=== PATIENT | female | born 1985 | race Caucasian/White ===

== ENCOUNTER 2017-08-16 21:39 | Emergency (ER) | payer OTHER ==
[~2017-08-16] VITALS: Ht 154.9 cm; Wt 73.5 kg
[2017-08-16] MEDS ORDERED: IBUP200C8 PO (22:06)
[2017-08-16] MEDS ORDERED: ONDANSETRON ODT 4 MG ONE ×2 (22:20→22:30)
[2017-08-16] MEDS ORDERED: ONDANSETRON ODT 8 MG PO ONE (22:30)
[2017-08-16 22:55] VITALS: BP 109/69
== END 2017-08-16 22:57 | disposition home or self-care (01) ==
LOC: ED 22:45
DX: R19.7 Diarrhea, unspecified (principal); R11.2 Nausea with vomiting, unspecified; R10.84 Generalized abdominal pain
CPT/HCPCS: 99283; Q0162

== ENCOUNTER 2020-10-18 18:41 | Inpatient (IN) | payer OTHER ==
[~2020-10-18] VITALS: Ht 154.9 cm; Wt 80.5 kg
[~2020-10-18 18:41] MED LIST: CEFAZOLIN 1,000 MG ONE; DEXAMETHASONE 4 MG/ML, 1ML ONE; GLYCOPYRROLATE 0.2MG/1ML, 5ML ONE; IBUP200C8 PO; NEOSTIGMINE 1 MG/ML, 10ML ONE; ONDANSETRON 2MG/ML, 2ML ONE; PROPOFOL 10 MG/ML, 20ML ONE; ROCURONIUM 10 MG/ML,10ML ONE; SUCCINYLCHOLINE 20 MG/ML, 10ML ONE
[2020-10-18] MEDS ORDERED: SODIUM CHLORIDE FLUSH 10ML SYR IVF ONE (20:00)
[2020-10-18 20:15] LABS: BASOPHILS % (AUTO) 1 % (0-1); EOSINOPHILS % (AUTO) 1 % (1-7); LYMPHOCYTES % (AUTO) 22 % (22-44); MEAN PLATELET VOLUME 7.4 fL (7.4-10.4); MONOCYTES % (AUTO) 5 % (2-9); NEUTROPHILS % (AUTO) 71 % (42-75); PLATELET COUNT 343 x10^3/uL (130-400); RED BLOOD COUNT 4.89 x10^6/uL (3.82-5.3); RED CELL DISTRIBUTION WIDTH 13.3 % (9.6-15.2)
[2020-10-18 20:22] LABS: ALANINE AMINOTRANSFERASE 44 U/L (12-78); ALBUMIN 3.8 g/dL (3.4-5.0); ANION GAP 2 mmol/L (5-15); CALCIUM 9.6 mg/dL (8.5-10.1); CHLORIDE 110 mmol/L (98-107); CREATININE 0.79 mg/dL (0.55-1.02)
[2020-10-18 20:24] LABS: MD NO
[2020-10-18 20:27] LABS: ALKALINE PHOSPHATASE 67 U/L (45-117); BILIRUBIN,TOTAL 0.3 mg/dL (0.2-1.0); TOTAL PROTEIN 8.3 g/dL (6.4-8.2)
[2020-10-18] MEDS ORDERED: ONDANSETRON 2MG/ML, 2ML ONE ×2 (21:19→22:10)
[2020-10-18] MEDS ORDERED: MORPHINE SULFATE 4 MG/ML, 1ML ONE (21:19)
[2020-10-18] MEDS ORDERED: SODIUM CHLORIDE 0.9%, 500ML IVBOLUS ONE (22:00)
[2020-10-18] MEDS ORDERED: ONDANSETRON 2MG/ML, 2ML IVPush ONE ×2 (22:00→23:00)
[2020-10-18] MEDS ORDERED: MORPHINE SULFATE 4 MG/ML, 1ML IVPush ONE (22:00)
[2020-10-18] MEDS ORDERED: HYDROmorphone 1 MG/ML, 1ML INJ ONE (22:10)
[2020-10-18] MEDS ORDERED: LACTATED RINGERS 1,000 ML IV SCH (23:00)
[2020-10-18] MEDS ORDERED: HYDROmorphone 1 MG/ML, 1ML INJ IVPush ONE (23:00)
--- NOTE | 2020-10-18 23:14 | NUR ---
pt ambulated to restroom with , bolus completed. pt states pain is much better. no other needs at this time.
--- NOTE | 2020-10-18 23:16 | NUR ---
hospitalist saw pt, orderes placed. pt had some water and juice at 2245, ok per erp. pt npo at midnight.
[2020-10-18] MEDS: D5%-0.9% NACL 1,000 ML IV SCH (23:29)
[2020-10-18] MEDS ORDERED: ONDANSETRON ODT 4 MG PO PRN (23:30)
[2020-10-18] MEDS ORDERED: hydrALAzine 20 MG/ML, 1ML IVPush PRN (23:30)
[2020-10-18] MEDS ORDERED: ACETAMINOPHEN 325 MG TABLET PO PRN (23:30)
[2020-10-18] MEDS ORDERED: OXYcodone IR 5MG TABLET PO PRN (23:30)
[2020-10-18] MEDS ORDERED: PROMETHAZINE 25 MG/ML, 1ML IM PRN (23:30)
[2020-10-18] MEDS ORDERED: morphine SULFATE 10 MG/ML, 1ML IVPush PRN (23:30)
[2020-10-18] MEDS ORDERED: ONDANSETRON 2MG/ML, 2ML IVPush PRN (23:30)
[2020-10-18] MEDS ORDERED: DOCUSATE 100 MG CAPSULE PO PRN (23:30)
--- NOTE | 2020-10-18 23:35 | NUR ---
pt understanding of npo status after midnight, fluids started per hospitalist order. hospital bed ordered from [facility].
--- NOTE | 2020-10-18 23:51 | NUR ---
pt placed on hospital bed, no other needs at this time
--- NOTE | 2020-10-19 01:12 | NUR ---
pt given litzy medina per request, no other needs at this time
[2020-10-19] MEDS ORDERED: PROMETHAZINE 25 MG/ML, 1ML ONE (03:49)
--- NOTE | 2020-10-19 04:28 | NUR ---
pt sleeping in bed, respirations even/unlabored. call light within reach
[2020-10-19 05:52] LABS: BASOPHILS % (AUTO) 1 % (0-1); EOSINOPHILS % (AUTO) 1 % (1-7); LYMPHOCYTES % (AUTO) 23 % (22-44); MEAN CORPUSCULAR HEMOGLOBIN 31.1 pg (27.0-34.8); MEAN CORPUSCULAR HGB CONC 34.3 g/dL (32.4-35.8); MEAN PLATELET VOLUME 7.3 fL (7.4-10.4); MONOCYTES % (AUTO) 7 % (2-9); NEUTROPHILS % (AUTO) 69 % (42-75); PLATELET COUNT 312 x10^3/uL (130-400); RED BLOOD COUNT 4.23 x10^6/uL (3.82-5.3); RED CELL DISTRIBUTION WIDTH 13.3 % (9.6-15.2)
[2020-10-19 05:54] LABS: MD NO
[2020-10-19 05:59] LABS: ALBUMIN 3.2 g/dL (3.4-5.0); ANION GAP 3 mmol/L (5-15); CALCIUM 8.6 mg/dL (8.5-10.1); CHLORIDE 109 mmol/L (98-107)
[2020-10-19 06:13] LABS: ALANINE AMINOTRANSFERASE 49 U/L (12-78); ALKALINE PHOSPHATASE 60 U/L (45-117); BILIRUBIN,TOTAL 0.5 mg/dL (0.2-1.0); CREATININE 0.72 mg/dL (0.55-1.02); TOTAL PROTEIN 6.6 g/dL (6.4-8.2)
--- NOTE | 2020-10-19 06:42 | NUR ---
REPORT GIVEN TO ELVIN ODONNELL (OR)
--- NOTE | 2020-10-19 06:52 | NUR ---
report given to ephraim null
--- NOTE | 2020-10-19 07:55 | NUR ---
PT RESTING IN BED NAD. PT REPORTS 7/10 PAIN AND A LITTLE NAUSEA PT REFUSING PAIN MEDS OR NASUAE MEDS AT THIS TIME. SURGEON WAS AT BEDSIDE.
[2020-10-19] MEDS ORDERED: INDOCYANINE GREEN 25 MG VIAL IV STA (08:16)
--- NOTE | 2020-10-19 08:59 | NUR ---
LESLIE BRENNAN REQUESTED OF PHARMACY.
--- NOTE | 2020-10-19 09:12 | NUR ---
LESLIE BRENNAN RECEIVED FROM PHARMACY AFTER PT WAS TRANSPORTED TO SURGERY. LESLIE BRENNAN WALKED TO SURGERY AND GIVEN TO NURSE AT BEDSIDE OF PT IN PRE-OP.
[2020-10-19] MEDS ORDERED: MIDAZOLAM 1 MG/ML, 2ML ONE (09:42)
[2020-10-19] MEDS ORDERED: FENTANYL PF 100 MCG/2ML ONE ×3 (09:42→11:49)
[2020-10-19] MEDS ORDERED: MEPERIDINE/PF 25MG/ML,1ML ONE (10:07)
[2020-10-19] MEDS ORDERED: OXYcodone 5 MG/5 ML ORAL.SOL UDC ONE (10:08)
[2020-10-19] MEDS ORDERED: BUPIVACAINE/PF-EPI 0.5% 1:200K INFIL ONE (10:15)
[2020-10-19] MEDS ORDERED: HYDROmorphone 1 MG/ML, 1ML INJ IVPush PRN (10:30)
[2020-10-19] MEDS ORDERED: PROMETHAZINE 25 MG/ML, 1ML IVPush PRN (10:30)
[2020-10-19] MEDS ORDERED: MEPERIDINE/PF 25MG/0.5ML IVPush PRN (10:30)
[2020-10-19] MEDS ORDERED: HYDROcodone/APAP 7.5-325MG/15ML UDC PO PRN (10:30)
[2020-10-19] MEDS ORDERED: OXYcodone 5 MG/5 ML ORAL.SOL UDC PO PRN ×2 (10:30→13:30)
[2020-10-19] MEDS ORDERED: KETOROLAC 30 MG/1 ML IVPush PRN (10:30)
[2020-10-19] MEDS: FENTANYL PF 100 MCG/2ML IV PRN ×2 (11:05→11:15)
[2020-10-19] MEDS ORDERED: ONDANSETRON 2MG/ML, 2ML ONE (11:24)
[2020-10-19 12:00] VITALS: BP 116/58
[2020-10-19] MEDS: D5%-0.9% NACL 1,000 ML IV SCH ×2 (13:23→13:27)
[2020-10-19] MEDS ORDERED: ACETAMINOPHEN 650 MG SUPP PR PRN (13:30)
[2020-10-19] MEDS ORDERED: KETOROLAC 30 MG/1 ML IV PRN (13:30)
[2020-10-19] MEDS ORDERED: ONDANSETRON 2MG/ML, 2ML IV PRN (13:30)
[2020-10-19] MEDS ORDERED: ACETAMINOPHEN 325 MG TABLET PO PRN (13:30)
[2020-10-19] MEDS ORDERED: POTASSIUM CHLORIDE 20 MEQ in D5%-0.45% NACL 1,000 ML IV SCH (13:30)
[2020-10-19] MEDS ORDERED: MORPHINE SULFATE 4 MG/ML, 1ML IVPush PRN (14:00)
[2020-10-19] MEDS ORDERED: ONDA4TAB7 PO (16:49)
[2020-10-19] MEDS ORDERED: OXYC5TAB2 PO (16:49)
[2020-10-20] MEDS ORDERED: ENOXAPARIN 40 MG/0.4 ML SQ SCH (09:00)
== END 2020-10-19 18:38 | disposition home or self-care (01) | DRG 419 ==
LOC: ED 22:23 → EDIP 22:35 → 4NE 10-19 12:22
PROVIDERS: ADMIT Internal Medicine; ATTEND Family Medicine
PROC: 0FT44ZZ Resection of Gallbladder, Percutaneous Endoscopic Approach (ICD-10-PCS; principal; 2020-10-19 09:00)
DX: K80.62 Calculus of gallbladder and bile duct with acute cholecystitis without obstruction (principal); E66.9 Obesity, unspecified; K76.0 Fatty (change of) liver, not elsewhere classified; Z20.828 Contact with and (suspected) exposure to other viral communicable diseases; Z68.33 Body mass index [BMI] 33.0-33.9, adult
CPT/HCPCS: 36415; J7042; 76700; 80053; 83036; 83690; 83735; 84443; 84703; 85025; 87635; 88304; 93005; J0690; J1100; J1170; J1885; J2250; J2405; J2550; J2704; J2710; J3010; J3480; J0330; J2270; J7040